=== PATIENT | female | born 1965 | race Hispanic/Latino ===

== ENCOUNTER 2019-11-01 09:26 | Outpatient (CLI) | payer OTHER ==
[2019-11-02 13:03] LABS: SARS-CoV-2 MS2 Positive; SARS-CoV-2 N Gene Negative; SARS-CoV-2 S Gene Negative; SARS-CoV-2 by NAA Not Detected (NotDetected); SARS-CoV-2 orf1ab Negative
== END 2019-11-01 09:27 | disposition home or self-care (01) ==
LOC: LABSCS 09:26
PROVIDERS: ATTEND Surgery
DX: Z20.828 Contact with and (suspected) exposure to other viral communicable diseases (principal)
CPT/HCPCS: 87635; U0003

== ENCOUNTER 2019-11-04 07:21 | Outpatient (CLI) | payer OTHER ==
--- NOTE | 2019-11-04 09:17 | RAD ---
Exam: Upper GI HISTORY: Gastroesophageal reflux disease. EXPOSURE: 1.5 minutes; 36.3 microgray/M2. FINDINGS: Initial [employer] radiograph demonstrates previous bariatric surgical change with a suture chain in the l eft upper quadrant. There are extensive fusion changes in the distal lumbar spine, lumbosacral junction and bilateral SI joints. Old left rib fractures are identified. The thoracic esophagus has an overall normal course and caliber. There is a small hiatal hernia. Ther e is a small amount of reflux during intermittent fluoroscopy. Gastric mucosa, duodenum, and proximal small bowel loops are grossly unremarkable. All of the images were obtained essentially with the patient in the supine projection and in a right posterior oblique projection. Patient has left rib soreness due to rib pain and fracture. IMPRESSION: 1. Limited positioning of the patient due to left rib pain. 2. Small hiatal hernia with intermittent reflux during fluoroscopy. Transcribed Date/Time: 11/04/2019 9:41 AM
== END 2019-11-04 07:22 | disposition home or self-care (01) ==
LOC: RAD 07:21
PROVIDERS: ATTEND Surgery
DX: K21.9 Gastro-esophageal reflux disease without esophagitis (principal); K44.9 Diaphragmatic hernia without obstruction or gangrene; R07.81 Pleurodynia
CPT/HCPCS: 74246

== ENCOUNTER 2019-11-25 06:37 | Day surgery (SDC) | payer OTHER ==
[2019-11-17 13:11] VITALS: BMI 29.5
[2019-11-25] MEDS ORDERED: Ondansetron PF 4 MG/2 ML Vial ONE ×2 (07:32→09:38)
[2019-11-25] MEDS ORDERED: Fentanyl 100 MCG/2 ML VIAL ONE ×4 (07:32→10:47)
[2019-11-25] MEDS ORDERED: Iothalamate Meglumine 60% 50 ML VIAL FS ONE (08:08)
[2019-11-25] MEDS ORDERED: Bupivacaine/Epinephrine 0.25% 30 ML VIAL ONE (08:08)
[2019-11-25] MEDS ORDERED: Ketorolac Tromethamine 30 MG/ML VIAL ONE (09:38)
[2019-11-25] MEDS ORDERED: PROPOFOL 200 MG/20 ML VIAL ONE (09:38)
[2019-11-25] MEDS ORDERED: Dexamethasone 20 MG/5 ML VIAL ONE (09:38)
[2019-11-25] MEDS ORDERED: Lidocaine 1% PF 5 ML VIAL ONE (09:38)
[2019-11-25] MEDS ORDERED: Succinylcholine Chloride 20 MG/ML 10 ml SYRINGE FS ONE (09:38)
[2019-11-25] MEDS ORDERED: EPHEDRINE 25 MG/5 ML SYRINGE ONE (09:38)
[2019-11-25] MEDS ORDERED: Promethazine HCl 25 MG/ML VIAL ONE (10:45)
--- NOTE | 2019-11-25 10:54 | RAD ---
XR Cholangiogram in Surgery History: Intraoperative cholangiogram Comparison: None. Findings: Total of 3 spot images were obtained from the operating room. Adequate contrast opacificati on within the common bile duct and small bowel. Impression: Fluoroscopy for surgical purposes. Total fluoroscopy time: 3.5 seconds
--- NOTE | 2019-11-25 11:02 | OP ---
DATE OF PROCEDURE: 11/25/2019 PREOPERATIVE DIAGNOSIS: Symptomatic cholelithiasis. PROCEDURE PERFORMED: Laparoscopic cholecystectomy with cholangiogram. INDICATIONS: A 54-year-old female, who has been having epigastric and right upper quadrant pain, radiating to the back. Ultrasound showed cholelithiasis. FINDINGS: Negative cholangiogram, multiple large stones. DESCRIPTION OF PROCEDURE: After informed consent was obtained, the patient was taken to the operating room and given general endotracheal anesthesia, placed in supine position. Abdomen was prepped and draped in usual fashion. Local anesthesia was infiltrated subcutaneously and deep, and a subumbilical incision was performed, subcu divided sharply. The fascia was grasped and 2 stay sutures of 0 Vicryl placed through each side of midline. Midline incised. Digital palpation revealed no local adhesions. A blunt 12 mm trocar inserted. Pneumoperitoneum was created to a pressure of 15 mmHg. A 0-degree laparoscope inserted under direct vision, three 5-mm ports were placed subcostally. The gallbladder was grasped and advanced superiorly. The peritoneum lysed distally to expose the cystic duct, cystic artery in critical view. A clip was placed at the base of the gallbladder on the cystic duct. The cystic duct was incised. An Arrow cholangiocatheter inserted. Intraoperative cholangiogram performed, showed free flow into the duodenum, no filling defects. The catheter was removed. The cystic duct triply ligated and divided. The cystic artery triply ligated and divided. The gallbladder removed from its fossa utilizing electrocautery, removed from the abdomen through the umbilical port. Hemostasis was assured. Trocars and retractors removed. The fascia closed with interrupted 0 Vicryl suture. The skin closed with interrupted 4-0 Rapide. Dermabond applied. The patient tolerated the procedure well, transferred to Recovery in good condition. Sponge and needle count verified correct x2. Job ID: [id number]
[2019-11-25] MEDS ORDERED: HYDROmorphone 2 MG/ML VIAL ONE (11:15)
[2019-11-25] MEDS ORDERED: HYDROcodone/Acetaminophen 5/325 mg Tablet ONE (12:46)
== END 2019-11-25 13:00 | disposition home or self-care (01) ==
LOC: SDC 06:37
PROVIDERS: ATTEND Surgery
PROC: 0FT44ZZ Resection of Gallbladder, Percutaneous Endoscopic Approach (ICD-10-PCS; principal; 2019-11-25)
PROC: BF121ZZ Fluoroscopy of Gallbladder using Low Osmolar Contrast (ICD-10-PCS; principal; 2019-11-25)
DX: K80.10 Calculus of gallbladder with chronic cholecystitis without obstruction (principal); K21.9 Gastro-esophageal reflux disease without esophagitis; I10 Essential (primary) hypertension; F41.8 Other specified anxiety disorders; F32.9 Major depressive disorder, single episode, unspecified; G47.33 Obstructive sleep apnea (adult) (pediatric); K58.9 Irritable bowel syndrome, unspecified; M19.90 Unspecified osteoarthritis, unspecified site; G89.29 Other chronic pain; M54.9 Dorsalgia, unspecified; Z79.82 Long term (current) use of aspirin; Z79.899 Other long term (current) drug therapy; Z91.040 Latex allergy status
CPT/HCPCS: 47532; 88304; J0690; J1100; J1170; J1885; J2405; J2550; J2704; J3010

== ENCOUNTER 2020-07-31 16:06 | Outpatient (CLI) | payer OTHER | END 2020-07-31 16:07 | disposition home or self-care (01) | LOC: SCSRAD 16:06 | PROVIDERS: ATTEND Psychiatry & Neurology Neurology | DX: M54.5 Low back pain (principal); M25.562 Pain in left knee; Z98.1 Arthrodesis status | CPT/HCPCS: 72100 ==